=== PATIENT | female | born 2005 | race Caucasian/White ===

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

== ENCOUNTER → 2025-03-26 | Outpatient (REF) | payer OTHER | LOC: M LAB REF 17:05 | DX: R55 Syncope and collapse (principal) ==